=== PATIENT | female | born 1980 | race Caucasian/White ===

== ENCOUNTER 2018-05-07 07:59 | Emergency (ER) | payer SELFPAY ==
--- NOTE | 2018-05-07 08:49 | EDPHYS ---
Physician Documentation [facility] Name: Ligia Naylor Age: 37 yrs Sex: Female : 1980 Arrival Date: 05/07/2018 Time: 08:03 Bed 12 Private MD: Out, [facility] ED Physician Mark Sousa HPI: 05/07 16:40 This 37 yrs old Female presents to ER via Ambulatory with complaints of kdr Toothache, Headache. 16:40 The patient presents with broken tooth/teeth, pain. The problem is located in the left kdr buccal mucosa and right buccal mucosa. Onset: The symptoms/episode began/occurred at an unknown time. This is a chronic issue. Duration: The symptoms are chronic, and have existed for years. Modifying factors: The symptoms are alleviated by nothing, the symptoms are aggravated by chewing, food. Associated signs and symptoms: Pertinent positives: pain, Headache, Pertinent negatives: anorexia, chills, dysphagia, fever, inability to eat, pain. Severity of symptoms: At their worst the symptoms were mild, moderate, in the emergency department the symptoms are unchanged. The patient has experienced similar episodes in the past, chronically. The patient has not recently seen a physician. 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 - Social history:: Smoking status: Patient uses tobacco products, denies chronic smoking, but will smoke occasionally. - Ebola Screening: : Patient negative for fever greater than or equal to 101.5 degrees Fahrenheit, and additional compatible Ebola Virus Disease symptoms Patient denies exposure to infectious person Patient denies travel to an Ebola-affected area in the 21 days before illness onset No symptoms or risks identified at this time. ROS: 16:40 Constitutional: Negative for fever, chills, and weight loss, Eyes: Negative for injury, kdr pain, redness, and discharge, Neck: Negative for injury, pain, and swelling, Cardiovascular: Negative for chest pain, palpitations, and edema, Respiratory: Negative for shortness of breath, cough, wheezing, and pleuritic chest pain, Abdomen/GI: Negative for abdominal pain, nausea, vomiting, diarrhea, and constipation, Back: Negative for injury and pain, : Negative for injury, bleeding, discharge, and swelling, MS/Extremity: Negative for injury and deformity, Skin: Negative for injury, rash, and discoloration, Neuro: Negative for headache, weakness, numbness, tingling, and seizure activity. 16:40 ENT: Positive for dental pain, Negative for drainage from ear(s), ear pain, foreign body sensation, hearing loss, pulling at ears, tinnitus, nasal discharge, rhinorrhea, sinus congestion. Exam: 16:40 Constitutional: This is a well developed, well nourished patient who is awake, alert, kdr and in no acute distress. Head/Face: Normocephalic, atraumatic. Eyes: Pupils equal round and reactive to light, extra-ocular motions intact. Lids and lashes normal. Conjunctiva and sclera are non-icteric and not injected. Cornea within normal limits. Periorbital areas with no swelling, redness, or edema. Neck: Trachea midline, no thyromegaly or masses palpated, and no cervical lymphadenopathy. Supple, full range of motion without nuchal rigidity, or vertebral point tenderness. No Meningismus. 16:40 ENT: Dental exam: avulsion, dental caries, that is moderate, diffusely, fractured teeth are noted, diffusely, missing teeth, diffusely, pain, that is mild, diffusely. Vital Signs: 08:28 BP 113 / 59; Pulse 64; Resp 16; Temp 98.6(TE); Pulse Ox 100% on R/A; Weight 77.11 kg; iw Height 5 ft. 6 in. (167.64 cm); Pain 10/10; 08:28 Body Mass Index 27.44 (77.11 kg, 167.64 cm) iw MDM: 08:49 Patient medically screened. kdr 16:40 Data reviewed: vital signs, nurses notes. Counseling: I had a detailed discussion with kdr the patient and/or guardian regarding: the historical points, exam findings, and any diagnostic results supporting the discharge/admit diagnosis, the need for outpatient follow up. Administered Medications: 08:55 Drug: Amoxicillin 500 mg Route: PO; iw 08:55 Drug: traMADol 50 mg Route: PO; iw Disposition: 05/07/18 08:49 Discharged to Home. Impression: Dental caries. - Condition is Fair. - Discharge Instructions: Dental Pain, [id number], Preventive Dental Care, Adult. - Prescriptions for Amoxicillin 500 mg Oral Capsule - take 1 capsule by ORAL route every 8 hours for 10 days; 30 tablet. Flagyl 500 mg Oral Tablet - take 1 tablet by ORAL route every 6 hours for 10 days; 40 tablet. Tramadol 50 mg Oral Tablet - take 1 tablet by ORAL route every 8 hours as needed; 12 tablet. - Medication Reconciliation Form, Thank You Letter, Antibiotic Education form. - Follow up: Private Physician; When: 2 - 3 days; Reason: If symptoms return, Further diagnostic work-up, Recheck today's complaints, Continuance of care, Re-evaluation by your physician. - Problem is new. - Symptoms are unchanged. Signatures: Mark Sousa MD MD kdr Jackie Hightower RN RN iw Corrections: (The following items were deleted from the chart) 09:19 08:49 05/07/2018 08:49 Discharged to Home. Impression: Dental caries. Condition is iw Fair. Forms are Medication Reconciliation Form, Thank You Letter, Antibiotic Education, Prescription Opioid Use. Follow up: Private Physician; When: 2 - 3 days; Reason: If symptoms return, Further diagnostic work-up, Recheck today's complaints, Continuance of care, Re-evaluation by your physician. Problem is new. Symptoms are unchanged. kdr
--- NOTE | 2018-05-07 08:49 | ER ---
Nurse's Notes [facility] Name: Ligia Naylor Age: 37 yrs Sex: Female : 1980 Arrival Date: 05/07/2018 Time: 08:03 Bed 12 Private MD: Out, [facility] Diagnosis: Dental caries Presentation: 05/07 08:27 Presenting complaint: Patient states: has had toothache X 5 days, c/o pain to upper and iw lower jaw, not sleeping well. Transition of care: patient was not received from another setting of care. Onset of symptoms was May 02, 2018. Risk Assessment: Do you want to hurt yourself or someone else? Patient reports no desire to harm self or others. Initial Sepsis Screen: Does the patient meet any 2 criteria? No. Patient's initial sepsis screen is negative. Does the patient have a suspected source of infection? No. Patient's initial sepsis screen is negative. Care prior to arrival: None. 08:27 Method Of Arrival: Ambulatory iw 08:27 Acuity: HILARIA 4 iw Triage Assessment: 08:45 EENT: Reports pain in mouth and right buccal mucosa and left buccal mucosa. iw 09:18 General: Appears in no apparent distress. Behavior is calm, cooperative. iw 10:31 EENT: Reports. 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 - Social history:: Smoking status: Patient uses tobacco products, denies chronic smoking, but will smoke occasionally. - Ebola Screening: : Patient negative for fever greater than or equal to 101.5 degrees Fahrenheit, and additional compatible Ebola Virus Disease symptoms Patient denies exposure to infectious person Patient denies travel to an Ebola-affected area in the 21 days before illness onset No symptoms or risks identified at this time. Screenin:45 Abuse screen: Denies threats or abuse. Denies injuries from another. Nutritional iw screening: No deficits noted. Tuberculosis screening: No symptoms or risk factors identified. Fall Risk None identified. Assessment: 08:45 General: Appears in no apparent distress. comfortable, Behavior is calm, cooperative. iw Pain: Complains of pain in teeth Pain currently is 8 out of 10 on a pain scale. Neuro: Level of Consciousness is awake, alert, obeys commands, Oriented to person, place, time, situation, Moves all extremities. Full function. Cardiovascular: Patient's skin is warm and dry. Respiratory: Respiratory effort is even, unlabored. EENT: Poor dentition noted. Derm: Skin is intact, is healthy with good turgor. Musculoskeletal: Range of motion: intact in all extremities. Vital Signs: 08:28 BP 113 / 59; Pulse 64; Resp 16; Temp 98.6(TE); Pulse Ox 100% on R/A; Weight 77.11 kg; iw Height 5 ft. 6 in. (167.64 cm); Pain 10/10; 08:28 Body Mass Index 27.44 (77.11 kg, 167.64 cm) iw ED Course: 08:03 Patient arrived in ED. sb2 08:03 Out, [facility] is Private Physician. sb2 08:14 Mark Sousa MD is Attending Physician. kdr 08:27 Jackie Hightower, RN is Primary Nurse. iw 08:28 Triage completed. iw 08:28 Arm band placed on. iw 08:45 Patient has correct armband on for positive identification. iw 09:18 No provider procedures requiring assistance completed. Patient did not have IV access iw during this emergency room visit. Administered Medications: 08:55 Drug: Amoxicillin 500 mg Route: PO; iw 08:55 Drug: traMADol 50 mg Route: PO; iw Outcome: 08:49 Discharge ordered by . kdr 09:18 Discharged to home ambulatory. iw 09:18 Condition: good 09:18 Discharge instructions given to patient, Instructed on discharge instructions, follow up and referral plans. medication usage, Demonstrated understanding of instructions, follow-up care, medications, Prescriptions given X 2. 09:19 Patient left the ED. iw Signatures: Mark Sousa MD MD kdr Jackie Hightower, RN RN iw Dolly Salazar sb2 Corrections: (The following items were deleted from the chart) 08:37 08:28 BP 113 / 59; Pulse 64bpm; Resp 16bpm; Pulse Ox 100% RA; 77.11 kg; Height 5 ft. 6 iw in.; BMI: 27.4; Pain 10/10; iw
[2018-05-07] MEDS ORDERED: AMOXICILLIN TRIHYDR 250 MG CAP ONE (08:54)
[2018-05-07] MEDS ORDERED: TRAMADOL HCL 50 MG TAB ONE (08:55)
== END 2018-05-07 09:19 | disposition home or self-care (01) ==
LOC: ER 07:59
DX: K02.9 Dental caries, unspecified (principal); Z72.0 Tobacco use; Z88.8 Allergy status to other drugs, medicaments and biological substances
CPT/HCPCS: 99283

== ENCOUNTER 2018-05-09 14:44 | Emergency (ER) | payer SELFPAY ==
--- NOTE | 2018-05-09 15:53 | ER ---
Nurse's Notes [facility] Name: Ligia Naylor Age: 37 yrs Sex: Female : 1980 Arrival Date: 05/09/2018 Time: 14:45 Bed 25 Private MD: Out, [facility] Diagnosis: Presentation: 05/09 15:06 Presenting complaint: Patient states: She was seen here 2 days ago for a toothache She aj1 was discharged home with a Rx for amoxicillin, Flagyl and Tramadol. Patient states that the pain and swelling in her right jaw are getting worse. Transition of care: patient was not received from another setting of care. Onset of symptoms was May 07, 2018. Risk Assessment: Do you want to hurt yourself or someone else? Patient reports no desire to harm self or others. Initial Sepsis Screen: Does the patient meet any 2 criteria? No. Patient's initial sepsis screen is negative. Does the patient have a suspected source of infection? Yes: Other: infected tooth. Care prior to arrival: None. 15:06 Method Of Arrival: Wheelchair aj 15:06 Acuity: HILARIA 3 aj1 Triage Assessment: 15:10 General: Appears in no apparent distress. uncomfortable, Behavior is calm, cooperative, aj1 appropriate for age. Pain: Complains of pain in right jaw Pain currently is 2 out of 10 on a pain scale. EENT: Reports pain in right jaw. Neuro: Level of Consciousness is awake, alert, obeys commands, Reports dizziness. Cardiovascular: Patient's skin is warm and dry. Respiratory: Airway is patent Respiratory effort is even, unlabored, Respiratory pattern is regular, symmetrical. 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 - Social history:: Smoking status: Patient uses tobacco products, smokes one-half pack cigarettes per day. - Ebola Screening: : Patient denies travel to an Ebola-affected area in the 21 days before illness onset. Vital Signs: 15:10 BP 109 / 73; Pulse 89; Resp 18; Temp 97.5; Pulse Ox 100% on R/A; Weight 77.11 kg (R); aj1 Height 5 ft. 6 in. (167.64 cm) (R); 15:10 Body Mass Index 27.44 (77.11 kg, 167.64 cm) aj ED Course: 14:45 Patient arrived in ED. sb2 14:45 Out, [facility] is Private Physician. sb2 15:08 Triage completed. aj 15:10 Arm band placed on Patient placed in waiting room. [facility] randallia 15:48 Rj Shook PA is PHCP. melina 15:48 Romain Gabriel MD is Attending Physician. [facility] Administered Medications: No medications were administered Outcome: 15:52 Patient left the ED. la1 Signatures: Carol Kendall RN RN baldo1 Rj Shook PA PA jmm Attema, Lee, RN RN la1 Dolly Salazar sb2 Corrections: (The following items were deleted from the chart) 15:13 15:10 Arm band placed on Patient placed in an exam room, [place] [id number] 15:14 15:06 Presenting complaint: Patient states: She was seen here 2 days ago for a aj1 toothache She was discharged home with a Rx for amoxicillin, Flagyl and Tramadol. Patient states that the pain and swelling in her right jaw are getting worse. aj1
== END 2018-05-09 15:52 | disposition left against medical advice (07) ==
LOC: ER 14:44
DX: K08.89 Other specified disorders of teeth and supporting structures (principal); F20.9 Schizophrenia, unspecified; F17.210 Nicotine dependence, cigarettes, uncomplicated; Z88.8 Allergy status to other drugs, medicaments and biological substances
CPT/HCPCS: 99281

== ENCOUNTER 2018-06-27 11:36 | Emergency (ER) | payer BC, SELFPAY ==
--- NOTE | 2018-06-27 13:31 | ER ---
Nurse's Notes [facility] Name: Ligia Naylor Age: 37 yrs Sex: Female : 1980 Arrival Date: 06/27/2018 Time: 11:43 Bed 23 Private MD: Out, [facility] Diagnosis: Hallucinations, unspecified Presentation: 06/27 12:05 Presenting complaint: Patient states: "I need medication for my schizophrenia, sv hypogenic, hyperactive. I was on [place] 14 years ago but stopped taking it because I was .". Transition of care: patient was not received from another setting of care. Onset of symptoms is unknown. Care prior to arrival: None. 12:05 Method Of Arrival: Ambulatory sv 12:05 Acuity: HILARIA 5 sv Triage Assessment: 12:05 General: Appears in no apparent distress. comfortable, Behavior is calm, cooperative, sv appropriate for age. Pain: Denies pain. Neuro: Level of Consciousness is awake, alert, obeys commands, Oriented to person, place, time, situation, Moves all extremities. Full function Gait is steady. Respiratory: Respiratory effort is even, unlabored, Respiratory pattern is regular, symmetrical. Derm: Skin is normal. Historical: - Allergies: 12:07 Zoloft; sv - PMHx: 12:07 Schizophrenia; Psychogenic; sv - PSHx: 12:07 ; sv - Immunization history:: Flu vaccine is not up to date. - Social history:: Smoking status: Patient uses tobacco products, smokes one pack cigarettes per day. - Ebola Screening: : No symptoms or risks identified at this time. Screenin:08 Abuse screen: Denies threats or abuse. Nutritional screening: No deficits noted. tl3 Tuberculosis screening: No symptoms or risk factors identified. Fall Risk None identified. Assessment: 13:08 General: Appears in no apparent distress. comfortable, well groomed, well developed, tl3 well nourished, Behavior is calm, cooperative, appropriate for age. Pain: Denies pain. Neuro: Level of Consciousness is awake, alert, obeys commands, Oriented to person, place, time, situation, Appropriate for age. Neuro: Reports that she has been off of her medications and has had an increase in nervousness and "talking out of her head". Cardiovascular: Patient's skin is warm and dry. Respiratory: Airway is patent Respiratory effort is even, unlabored, Respiratory pattern is regular, symmetrical. GI: No deficits noted. No signs and/or symptoms were reported involving the gastrointestinal system. : No deficits noted. No signs and/or symptoms were reported regarding the genitourinary system. EENT: No deficits noted. No signs and/or symptoms were reported regarding the EENT system. Derm: No deficits noted. No signs and/or symptoms reported regarding the dermatologic system. Musculoskeletal: No deficits noted. No signs and/or symptoms reported regarding the musculoskeletal system. Vital Signs: 12:07 BP 141 / 77; Pulse 79; Resp 18; Temp 97.3; Pulse Ox 100% ; Weight 68.04 kg; Height 5 sv ft. 6 in. (167.64 cm); Pain 0/10; 13:08 BP 125 / 74; Pulse 69; Resp 18; Pulse Ox 100% on R/A; tl3 13:55 BP 121 / 64; Pulse 60; Resp 16 S; Pulse Ox 99% on R/A; aa5 12:07 Body Mass Index 24.21 (68.04 kg, 167.64 cm) sv ED Course: 11:43 Patient arrived in ED. mr 11:43 Out, [facility] is Private Physician. mr 12:06 Triage completed. sv 12:08 Arm band placed on. 12:48 [facility] 12:48 Antwan Ponce MD is Attending Physician. [facility] 13:01 Chelle Dumont, MARINE is Primary Nurse. tl3 13:08 Patient has correct armband on for positive identification. Call light in reach. Pulse tl3 ox on. NIBP on. 13:08 No provider procedures requiring assistance completed. Patient did not have IV access tl3 during this emergency room visit. Administered Medications: No medications were administered Outcome: 13:30 Discharge ordered by . [facility] 13:59 Discharged to home ambulatory. aa5 13:59 Condition: stable 13:59 Discharge instructions given to patient, Instructed on discharge instructions, follow up and referral plans. Demonstrated understanding of instructions, follow-up care. 14:00 Patient left the ED. aa5 Signatures: Dian Ayala RN RN Rj Shook PA PA [facility] Milena Yuan mr SyMarry RN RN aa5 Aspers, Chelle, RN RN tl3
--- NOTE | 2018-06-27 13:31 | EDPHYS ---
Physician Documentation [facility] Name: Ligia Naylor Age: 37 yrs Sex: Female : 1980 Arrival Date: 06/27/2018 Time: 11:43 Bed 23 Private MD: Out, [facility] ED Physician Antwan Ponce HPI: 06/27 13:28 This 37 yrs old Female presents to ER via Ambulatory with complaints of jmm Medication Refill. 13:28 The patient presents to the emergency department requesting refill(s) for:. This is a jmm 37 year old female with a history of schizophrenia that presents to the ED with a request to begin treatment for schizophrenia after a 14 year hiatus. Patient states she is hearing voices and feels like she is becoming hyperactive. Patient denies SI or HI. Patient states she is scheduled to see a psychiatrist on this coming Thursday. . Historical: - Allergies: 12:07 Zoloft; sv - PMHx: 12:07 Schizophrenia; Psychogenic; sv - PSHx: 12:07 ; sv - Immunization history:: Flu vaccine is not up to date. - Social history:: Smoking status: Patient uses tobacco products, smokes one pack cigarettes per day. - Ebola Screening: : No symptoms or risks identified at this time. ROS: 13:28 Constitutional: Negative for fever, chills, and weight loss, Cardiovascular: Negative jmm for chest pain, palpitations, and edema, Respiratory: Negative for shortness of breath, cough, wheezing, and pleuritic chest pain, Abdomen/GI: Negative for abdominal pain, nausea, vomiting, diarrhea, and constipation. 13:28 Psych: Positive for auditory hallucinations, Negative for homicidal ideation, suicidal ideation. 13:28 All other systems are negative. Exam: 13:28 Constitutional: This is a well developed, well nourished patient who is awake, alert, jmm and in no acute distress. Head/Face: atraumatic. Eyes: EOMI, no conjunctival erythema appreciated ENT: Moist Mucus Membranes Neck: Trachea midline, Supple Chest/axilla: Normal chest wall appearance and motion. Cardiovascular: Regular rate and rhythm. No edema appreciated Respiratory: Normal respirations, no respiratory distress appreciated Abdomen/GI: Non distended, soft Back: Normal ROM Skin: General appearance color normal MS/ Extremity: Moves all extremities, no obvious deformities appreciated, no edema noted to the lower extremities Neuro: Awake and alert, normal gait Psych: Behavior is normal, Mood is normal, Patient is cooperative and pleasant Vital Signs: 12:07 BP 141 / 77; Pulse 79; Resp 18; Temp 97.3; Pulse Ox 100% ; Weight 68.04 kg; Height 5 sv ft. 6 in. (167.64 cm); Pain 0/10; 13:08 BP 125 / 74; Pulse 69; Resp 18; Pulse Ox 100% on R/A; tl3 13:55 BP 121 / 64; Pulse 60; Resp 16 S; Pulse Ox 99% on R/A; aa5 12:07 Body Mass Index 24.21 (68.04 kg, 167.64 cm) sv MDM: 13:28 Patient medically screened. [facility] 13:29 Data reviewed: vital signs, nurses notes. Counseling: I had a detailed discussion with ian the patient and/or guardian regarding: the historical points, exam findings, and any diagnostic results supporting the discharge/admit diagnosis, the need for outpatient follow up, to return to the emergency department if symptoms worsen or persist or if there are any questions or concerns that arise at home. 13:29 Data interpreted: Pulse oximetry: on room air is 99 %. Interpretation: normal. [facility] 13:29 ED course: Patient is calm and in NAD in the ED with no complaints of SI or HI. Patient ian is advised of the need to follow p with Psychiatry this Thursday and otherwise given return precautions for worsening symptoms. Patient understood and agrees with the plan of care. . Administered Medications: No medications were administered Disposition: 06/27/18 13:30 Discharged to Home. Impression: Hallucinations, unspecified. - Condition is Stable. - Discharge Instructions: Schizophrenia. - Medication Reconciliation Form, Thank You Letter, Antibiotic Education, Prescription Opioid Use form. - Follow up: Private Physician; When: 2 - 3 days; Reason: Recheck today's complaints, Continuance of care, Re-evaluation by your physician. Addendum: 06/28/2018 15:19 Co-signature as Attending Physician, Antwan Ponce MD. g s Signatures: Dian Ayala RN RN sv Mickail, Joel, PA PA jmm Calderon, Audri, RN RN [facility] Antwan Ponce MD MD Corrections: (The following items were deleted from the chart) 06/27 14:00 13:30 06/27/2018 13:30 Discharged to Home. Impression: Hallucinations, unspecified. aa5 Condition is Stable. Forms are Medication Reconciliation Form, Thank You Letter, Antibiotic Education, Prescription Opioid Use. Follow up: Private Physician; When: 2 - 3 days; Reason: Recheck today's complaints, Continuance of care, Re-evaluation by your physician. ian
== END 2018-06-27 14:00 | disposition home or self-care (01) ==
LOC: ER 11:36
DX: R44.0 Auditory hallucinations (principal); F20.9 Schizophrenia, unspecified; F17.210 Nicotine dependence, cigarettes, uncomplicated; Z88.8 Allergy status to other drugs, medicaments and biological substances
CPT/HCPCS: 99283

== ENCOUNTER 2018-08-11 21:42 | Emergency (ER) | payer BC, SELFPAY ==
--- NOTE | 2018-08-11 23:05 | ER ---
Nurse's Notes [facility] Name: Ligia Naylor Age: 37 yrs Sex: Female : 1980 Arrival Date: 08/11/2018 Time: 21:42 Bed 8 Private MD: Diagnosis: Schizophrenia, unspecified Presentation: 08/11 21:59 Presenting complaint: Patient states: "I've been diagnosed schizophrenic since I was 4, aj1 I recently started taking my medicines again, because they said I was making scary monster faces. Plus the voices in my head won't shut the hell up. I recognize the voices and they are the ninja turtles. I just want them to stop" Denies suicidal or homicidal ideation. States her son is at [facility], and they said that they would accept her but she doesn't have a ride to [place]. Transition of care: patient was not received from another setting of care. Onset of symptoms was August 11, 2018. Risk Assessment: Do you want to hurt yourself or someone else? Patient reports no desire to harm self or others. Initial Sepsis Screen: Does the patient meet any 2 criteria? No. Patient's initial sepsis screen is negative. Does the patient have a suspected source of infection? No. Patient's initial sepsis screen is negative. Care prior to arrival: None. 21:59 Method Of Arrival: Ambulatory aj1 21:59 Acuity: HILARIA 3 aj1 Triage Assessment: 22:04 General: Appears in no apparent distress. comfortable, Behavior is calm, cooperative, aj1 appropriate for age. Pain: Denies pain. Neuro: Level of Consciousness is awake, alert, obeys commands. Cardiovascular: Patient's skin is warm and dry. Respiratory: Airway is patent Respiratory effort is even, unlabored, Respiratory pattern is regular, symmetrical. 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 - Social history:: Smoking status: Patient uses tobacco products, 5-6 cigarettes per day. - Ebola Screening: : Patient denies travel to an Ebola-affected area in the 21 days before illness onset. Screenin:17 Abuse screen: Denies threats or abuse. Nutritional screening: No deficits noted. jd3 Tuberculosis screening: No symptoms or risk factors identified. Fall Risk Ambulatory Aid- None/Bed Rest/Nurse Assist (0 pts). Gait- Normal/Bed Rest/Wheelchair (0 pts) Mental Status- Oriented to own ability (0 pts). Total Hirsch Fall Scale indicates No Risk (0-24 pts). Assessment: 22:15 General: Appears in no apparent distress. Behavior is calm, cooperative, appropriate jd3 for age, Denies suicidal and homicidal thoughts. Pain: Denies pain. Neuro: Level of Consciousness is awake, alert, obeys commands, Oriented to person, place, time, situation, Appropriate for age Speech is normal, Reports hearing voices.. Cardiovascular: Capillary refill < 3 seconds Patient's skin is warm and dry. Respiratory: Airway is patent Respiratory effort is even, unlabored, Respiratory pattern is regular, symmetrical, Denies shortness of breath. GI: No signs and/or symptoms were reported involving the gastrointestinal system. : No signs and/or symptoms were reported regarding the genitourinary system. EENT: No signs and/or symptoms were reported regarding the EENT system. Derm: Skin is intact, Skin is dry, Skin is normal, Skin temperature is warm. Musculoskeletal: Circulation, motion, and sensation intact. Range of motion: intact in all extremities. 23:24 Reassessment: Patient appears in no apparent distress at this time. Patient and/or jd3 family updated on plan of care and expected duration. Pain level reassessed. Patient is alert, oriented x 3, equal unlabored respirations, skin warm/dry/pink. Vital Signs: 22:04 BP 123 / 79; Pulse 89; Resp 18; Temp 97.6; Pulse Ox 99% on R/A; Weight 81.65 kg (R); aj1 Height 5 ft. 6 in. (167.64 cm) (R); Pain 0/10; 23:25 Pulse 88; Resp 17 S; Pulse Ox 100% on R/A; Pain 0/10; jd3 22:04 Body Mass Index 29.05 (81.65 kg, 167.64 cm) aj1 ED Course: 21:42 Patient arrived in ED. ds1 22:03 Triage completed. aj1 22:04 Arm band placed on Patient placed in an exam room. aj1 22:15 Isaac Matta, RN is Primary Nurse. jd3 22:16 Patient has correct armband on for positive identification. Bed in low position. Call jd3 light in reach. Side rails up X 1. 22:20 Herrera Viveros NP is PHCP. pm1 22:20 Damir Kovacs MD is Attending Physician. pm1 23:24 No provider procedures requiring assistance completed. Patient did not have IV access rv during this emergency room visit. Administered Medications: No medications were administered Outcome: 23:05 Discharge ordered by MD. pm1 23:26 Discharged to home ambulatory. jd3 23:26 Condition: stable 23:26 Discharge instructions given to patient, Instructed on discharge instructions, follow up and referral plans. Demonstrated understanding of instructions, follow-up care. 23:27 Patient left the ED. jd3 Signatures: Carol Kendall RN RN aj1 Gisela Cutler ds1 Herrera Viveros NP DAIRY MANAGEMENT SPECIALIST pm1 Isaac Matta, MARNIE RN jd3 Salty York RN RN rv Corrections: (The following items were deleted from the chart) 22:17 22:15 General: Appears in no apparent distress. Behavior is calm, cooperative, jd3 appropriate for age, jd3
--- NOTE | 2018-08-11 23:06 | EDPHYS ---
Physician Documentation [facility] Name: Ligia Naylor Age: 37 yrs Sex: Female : 1980 Arrival Date: 08/11/2018 Time: 21:42 Bed 8 Private MD: ED Physician Damir Kovacs HPI: 08/11 23:04 This 37 yrs old Female presents to ER via Ambulatory with complaints of Psych pm1 Problem. 23:04 The patient presents to the emergency department with auditory hallucinations. Onset: pm1 The symptoms/episode began/occurred since the age of 4. Past psychiatric history: Prior diagnosis: schizophrenia. Associated signs and symptoms: Pertinent positives; hallucinations, Pertinent negatives: abdominal pain, chest pain, homicidal ideation, paranoia, shortness of breath, substance abuse, suicide ideation. The patient has experienced similar episodes in the past, chronically. 23:04 Patient with a history of noncompliance with medications. She has started taking her pm1 Depakote and risperidone recently due to hearing voices from teenage mutant ninja turtles and making scary faces at people. Patient denies homicidal or suicidal ideation. 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 - Social history:: Smoking status: Patient uses tobacco products, 5-6 cigarettes per day. - Ebola Screening: : Patient denies travel to an Ebola-affected area in the 21 days before illness onset. ROS: 23:04 Constitutional: Negative for fever, chills, and weight loss, Eyes: Negative for injury, pm1 pain, redness, and discharge, ENT: Negative for injury, pain, and discharge, Neck: Negative for injury, pain, and swelling, Cardiovascular: Negative for chest pain, palpitations, and edema, Respiratory: Negative for shortness of breath, cough, wheezing, and pleuritic chest pain, Abdomen/GI: Negative for abdominal pain, nausea, vomiting, diarrhea, and constipation, Back: Negative for injury and pain, : Negative for injury, bleeding, discharge, and swelling, MS/Extremity: Negative for injury and deformity, Skin: Negative for injury, rash, and discoloration, Neuro: Negative for headache, weakness, numbness, tingling, and seizure. 23:04 Psych: Positive for auditory hallucinations, Negative for visual hallucinations, homicidal ideation, insomnia, suicide gesture, suicidal ideation. Exam: 23:04 Constitutional: This is a well developed, well nourished patient who is awake, alert, pm1 and in no acute distress. Head/Face: Normocephalic, atraumatic. Eyes: Pupils equal round and reactive to light, extra-ocular motions intact. Lids and lashes normal. Conjunctiva and sclera are non-icteric and not injected. Cornea within normal limits. Periorbital areas with no swelling, redness, or edema. ENT: Nares patent. No nasal discharge, no septal abnormalities noted. Tympanic membranes are normal and external auditory canals are clear. Oropharynx with no redness, swelling, or masses, exudates, or evidence of obstruction, uvula midline. Mucous membranes moist. Neck: Trachea midline, no thyromegaly or masses palpated, and no cervical lymphadenopathy. Supple, full range of motion without nuchal rigidity, or vertebral point tenderness. No Meningismus. Chest/axilla: Normal chest wall appearance and motion. Nontender with no deformity. No lesions are appreciated. Cardiovascular: Regular rate and rhythm with a normal S1 and S2. No gallops, murmurs, or rubs. Normal PMI, no JVD. No pulse deficits. Respiratory: Lungs have equal breath sounds bilaterally, clear to auscultation and percussion. No rales, rhonchi or wheezes noted. No increased work of breathing, no retractions or nasal flaring. Abdomen/GI: Soft, non-tender, with normal bowel sounds. No distension or tympany. No guarding or rebound. No evidence of tenderness throughout. Back: No spinal tenderness. No costovertebral tenderness. Full range of motion. Skin: Warm, dry with normal turgor. Normal color with no rashes, no lesions, and no evidence of cellulitis. MS/ Extremity: Pulses equal, no cyanosis. Neurovascular intact. Full, normal range of motion. 23:04 Neuro: Orientation: is normal, Motor: moves all fours, Gait: is steady, at a normal pace, without difficulty. 23:04 Psych: Behavior/mood is cooperative, Affect is calm, Oriented to person, place, time, Patient has no thoughts/intents to harm self or others. Delusions/hallucinations are not present. Vital Signs: 22:04 BP 123 / 79; Pulse 89; Resp 18; Temp 97.6; Pulse Ox 99% on R/A; Weight 81.65 kg (R); aj1 Height 5 ft. 6 in. (167.64 cm) (R); Pain 0/10; 23:25 Pulse 88; Resp 17 S; Pulse Ox 100% on R/A; Pain 0/10; jd3 22:04 Body Mass Index 29.05 (81.65 kg, 167.64 cm) aj1 MDM: 22:20 Patient medically screened. pm1 23:04 Data reviewed: vital signs. Data interpreted: Pulse oximetry: on room air is 99 %. pm1 Interpretation: normal. Counseling: I had a detailed discussion with the patient and/or guardian regarding: the historical points, exam findings, and any diagnostic results supporting the discharge/admit diagnosis, the need for outpatient follow up, to return to the emergency department if symptoms worsen or persist or if there are any questions or concerns that arise at home. Administered Medications: No medications were administered Disposition: 08/12 06:06 Co-signature as Attending Physician, Damir Kovacs MD I agree with the assessment and tw4 plan of care. Disposition: 08/11/18 23:05 Discharged to Home. Impression: Schizophrenia, unspecified. - Condition is Stable. - Discharge Instructions: Schizophrenia. - Medication Reconciliation Form, Thank You Letter form. - Follow up: Emergency Department; When: As needed; Reason: Worsening of condition. Follow up: Private Physician; When: 2 - 3 days; Reason: Recheck today's complaints, Continuance of care, Re-evaluation by your physician. - Problem is new. - Symptoms have improved. Signatures: Carol Kendall RN RN aj1 Herrera Viveros NP ELECTROMYOGRAPHIC TECHNICIAN pm1 Isaac Matta RN RN jd3 Damir Kovacs MD MD tw4 Corrections: (The following items were deleted from the chart) 08/11 23:27 23:05 08/11/2018 23:05 Discharged to Home. Impression: Schizophrenia, unspecified. jd3 Condition is Stable. Forms are Medication Reconciliation Form, Thank You Letter, Antibiotic Education, Prescription Opioid Use. Follow up: Emergency Department; When: As needed; Reason: Worsening of condition. Follow up: Private Physician; When: 2 - 3 days; Reason: Recheck today's complaints, Continuance of care, Re-evaluation by your physician. Problem is new. Symptoms have improved. pm1
== END 2018-08-11 23:27 | disposition home or self-care (01) ==
LOC: ER 21:42
DX: F20.9 Schizophrenia, unspecified (principal); F17.210 Nicotine dependence, cigarettes, uncomplicated; Z88.8 Allergy status to other drugs, medicaments and biological substances
CPT/HCPCS: 99281

== ENCOUNTER 2018-11-02 08:46 | Emergency (ER) | payer SELFPAY ==
[2018-11-02 10:36] LABS: Absolute Lymphocytes (CBC) 1.4 K/uL (0.7-4.9); Absolute Monocytes 0.9 K/uL (0.1-1.3); Absolute Neutrophil 4.7 K/uL (1.8-8.0); Basophils % 0.4 % (0-1.3); Hematocrit 42.6 % (36.0-45.0); Lymphocytes % 19.7 % (15.3-44.8); MPV 8.5 fL (7.6-11.3); Monocytes % 12.6 % (3.3-12.3); RBC Red Blood Cell Count 4.92 M/uL (3.86-4.86)
[2018-11-02] MEDS ORDERED: NA CHLORIDE 0.9% 1,000 ML ONE (10:43)
[2018-11-02] MEDS ORDERED: ONDANSETRON 4 MG/2 ML VIAL ONE (10:43)
[2018-11-02 10:47] LABS: Potassium 3.9 mmol/L (3.5-5.1)
[2018-11-02 10:58] LABS: Urine Blood 1+ (NEG); Urine Glucose NEGATIVE (NEG); Urine Protein NEGATIVE (NEG); Urine Specific Gravity 1.025 (1.005-1.030)
--- NOTE | 2018-11-02 11:25 | ER ---
Nurse's Notes [facility] Name: Ligia Naylor Age: 38 yrs Sex: Female : 1980 Arrival Date: 11/02/2018 Time: 08:48 Bed 6 Private MD: Diagnosis: Nausea Presentation: 11/02 08:51 Presenting complaint: Patient states: nausea x5 days, no vomiting, I think I am anemic, ch and I have had diarrhe every other day. Transition of care: patient was not received from another setting of care. Onset of symptoms was October 28, 2018. Risk Assessment: Do you want to hurt yourself or someone else? Patient reports no desire to harm self or others. Initial Sepsis Screen: Does the patient meet any 2 criteria? No. Patient's initial sepsis screen is negative. Does the patient have a suspected source of infection? No. Patient's initial sepsis screen is negative. Care prior to arrival: None. 08:51 Method Of Arrival: Ambulatory 08:51 Acuity: HILARIA 4 ch Triage Assessment: 08:52 General: Appears in no apparent distress. comfortable, Behavior is calm, cooperative, ch appropriate for age. Pain: Denies pain. GI: Reports diarrhea, intolerance of food, nausea. Historical: - Allergies: 08:52 [place] Carbonate; 08:52 Zoloft; - Home Meds: 08:52 Depakote Oral [Active]; risperidone Oral [Active]; ch - PMHx: 08:52 Psychogenic; Schizophrenia; - PSHx: 08:52 None; ch - Immunization history:: Adult Immunizations up to date, Flu vaccine is not up to date. - Social history:: Smoking status: Patient uses tobacco products, denies chronic smoking, but will smoke occasionally. - Ebola Screening: : Patient negative for fever greater than or equal to 101.5 degrees Fahrenheit, and additional compatible Ebola Virus Disease symptoms Patient denies exposure to infectious person Patient denies travel to an Ebola-affected area in the 21 days before illness onset No symptoms or risks identified at this time. Screenin:27 Abuse screen: Denies threats or abuse. Denies injuries from another. Nutritional sg screening: No deficits noted. Tuberculosis screening: No symptoms or risk factors identified. Fall Risk None identified. Assessment: 09:27 Reassessment: pt reports dizziness and unable to remain standing for [employer], sg Ximena CHEMICAL SPRAYER notified. 10:30 Reassessment: Patient appears in no apparent distress at this time. Patient and/or ph family updated on plan of care and expected duration. Pain level reassessed. Patient is alert, oriented x 3, equal unlabored respirations, skin warm/dry/pink. Pt resting quietly, denies pain or nausea at this time, awaiting lab results. 11:10 Reassessment: Patient appears in no apparent distress at this time. Patient and/or ph family updated on plan of care and expected duration. Pain level reassessed. Patient is alert, oriented x 3, equal unlabored respirations, skin warm/dry/pink. Pt given juice and water for PO challenge, tolerating well, denies nausea. Vital Signs: 08:52 BP 103 / 72; Pulse 85; Resp 16; Temp 97.8; Pulse Ox 99% on R/A; Weight 85.28 kg; Height ch 5 ft. 5 in. (165.10 cm); Pain 0/10; 09:20 BP 101 / 62 LA Supine (auto/lg); Pulse 63; em1 09:22 BP 98 / 64 LA Sitting (auto/lg); Pulse 66; em1 08:52 Body Mass Index 31.28 (85.28 kg, 165.10 cm) ED Course: 08:48 Patient arrived in ED. as 08:51 Triage completed. 08:52 Arm band placed on left wrist. Patient placed in an exam room, on a stretcher. 08:54 Jenniffer Cline FNP-C is [facility]. 08:54 Romain Gabriel MD is Attending Physician. kb 09:24 Gus Smith, MARNIE is Primary Nurse. sg 09:30 Patient has correct armband on for positive identification. Placed in gown. Bed in low ph position. Call light in reach. rn rehab on. Pulse ox on. NIBP on. 10:24 Initial lab(s) drawn, by me, sent to lab. Inserted saline lock: 20 gauge in left em1 antecubital area, using aseptic technique. Blood collected. 11:43 No provider procedures requiring assistance completed. IV discontinued, intact, ph bleeding controlled, No redness/swelling at site. Pressure dressing applied. Administered Medications: 09:33 CANCELLED (Other Intervention Used): Zofran 4 mg PO once kb 10:40 Drug: NS 0.9% 1000 ml Route: IV; Rate: 1000 ml; Site: left antecubital; ph 11:45 Follow up: Response: No adverse reaction; IV Status: Completed infusion ph 11:42 Not Given (Patient Refused; Denies nausea): Zofran 4 mg IVP once; over 2 minutes ph Outcome: 11:24 Discharge ordered by MD. kb 11:44 Discharged to home ambulatory, with significant other. ph 11:44 Condition: good 11:44 Discharge instructions given to patient, significant other, Instructed on discharge instructions, follow up and referral plans. medication usage, Demonstrated understanding of instructions, follow-up care, medications, Prescriptions given X 1. 11:45 Patient left the ED. ph Signatures: Jenniffer Cline, MARIA EUGENIA CARCAMO-Allyson Victor, RN RN Gus Smith RN RN sg Anam, Beverly Mendieta, Km em1 Melissa Katz RN RN ph Corrections: (The following items were deleted from the chart) 09:29 09:27 Reassessment: pt reports dizziness and unable to remain standing for [employer], jeny Bueno CHEMICAL SPRAYER notified sg
--- NOTE | 2018-11-02 11:25 | EDPHYS ---
Physician Documentation [facility] Name: Ligia Naylor Age: 38 yrs Sex: Female : 1980 Arrival Date: 11/02/2018 Time: 08:48 Bed 6 Private MD: ED Physician Romain Gabriel HPI: 11/02 09:06 This 38 yrs old Female presents to ER via Ambulatory with complaints of kb Nausea. 09:06 The patient presents to the emergency department with nausea. Onset: The kb symptoms/episode began/occurred 5 day(s) ago. Possible causes: unknown. The symptoms are aggravated by nothing. The symptoms are alleviated by food . Associated signs and symptoms: Pertinent positives: nausea, Pertinent negatives: abdominal pain, anorexia, belching, constipation, diarrhea, dysuria, fever, flatulence, GI bleeding, hematuria, vaginal discharge, vomiting. Severity of symptoms: At their worst the symptoms were moderate in the emergency department the symptoms are unchanged. The patient has not experienced similar symptoms in the past. The patient has not recently seen a physician. Pt reports nausea for 5 days. States she is only able to eat about 5 bites of food at a time. States "I may be anemic because I haven't been able to eat much.". Historical: - Allergies: 08:52 Norge Carbonate; ch 08:52 Zoloft; ch - Home Meds: 08:52 Depakote Oral [Active]; risperidone Oral [Active]; ch - PMHx: 08:52 Psychogenic; Schizophrenia; ch - PSHx: 08:52 None; ch - Immunization history:: Adult Immunizations up to date, Flu vaccine is not up to date. - Social history:: Smoking status: Patient uses tobacco products, denies chronic smoking, but will smoke occasionally. - Ebola Screening: : Patient negative for fever greater than or equal to 101.5 degrees Fahrenheit, and additional compatible Ebola Virus Disease symptoms Patient denies exposure to infectious person Patient denies travel to an Ebola-affected area in the 21 days before illness onset No symptoms or risks identified at this time. ROS: 09:06 Constitutional: Negative for fever, chills, and weight loss, ENT: Negative for injury, kb pain, and discharge, Neck: Negative for injury, pain, and swelling, Cardiovascular: Negative for chest pain, palpitations, and edema, Respiratory: Negative for shortness of breath, cough, wheezing, and pleuritic chest pain, Back: Negative for injury and pain, MS/Extremity: Negative for injury and deformity, Skin: Negative for injury, rash, and discoloration, Neuro: Negative for headache, weakness, numbness, tingling, and seizure. 09:06 Abdomen/GI: Positive for nausea, Negative for abdominal pain, vomiting, diarrhea, constipation, abdominal cramps, abdominal distension, anorexia. Exam: 09:05 Constitutional: This is a well developed, well nourished patient who is awake, alert, kb and in no acute distress. Head/Face: Normocephalic, atraumatic. Chest/axilla: Normal chest wall appearance and motion. Nontender with no deformity. No lesions are appreciated. Cardiovascular: Regular rate and rhythm with a normal S1 and S2. No gallops, murmurs, or rubs. Normal PMI, no JVD. No pulse deficits. Respiratory: Lungs have equal breath sounds bilaterally, clear to auscultation and percussion. No rales, rhonchi or wheezes noted. No increased work of breathing, no retractions or nasal flaring. Abdomen/GI: Soft, non-tender, with normal bowel sounds. No distension or tympany. No guarding or rebound. No evidence of tenderness throughout. Back: No spinal tenderness. No costovertebral tenderness. Full range of motion. Skin: Warm, dry with normal turgor. Normal color with no rashes, no lesions, and no evidence of cellulitis. MS/ Extremity: Pulses equal, no cyanosis. Neurovascular intact. Full, normal range of motion. Neuro: Awake and alert, GCS 15, oriented to person, place, time, and situation. Cranial nerves II-XII grossly intact. Motor strength 5/5 in all extremities. Sensory grossly intact. Cerebellar exam normal. Normal gait. Vital Signs: 08:52 BP 103 / 72; Pulse 85; Resp 16; Temp 97.8; Pulse Ox 99% on R/A; Weight 85.28 kg; Height ch 5 ft. 5 in. (165.10 cm); Pain 0/10; 09:20 BP 101 / 62 LA Supine (auto/lg); Pulse 63; em1 09:22 BP 98 / 64 LA Sitting (auto/lg); Pulse 66; em1 08:52 Body Mass Index 31.28 (85.28 kg, 165.10 cm) ch MDM: 08:54 Patient medically screened. kb 09:05 Data reviewed: vital signs, nurses notes. Data interpreted: Pulse oximetry: on room air kb is 99 %. Interpretation: normal. 09:33 ED course: Pt reports lightheadedness upon standing when trying to obtain orthostatics. kb Will give IV fluids. 11:24 Counseling: I had a detailed discussion with the patient and/or guardian regarding: the kb historical points, exam findings, and any diagnostic results supporting the discharge/admit diagnosis, lab results, the need for outpatient follow up, a family practitioner, to return to the emergency department if symptoms worsen or persist or if there are any questions or concerns that arise at home. ED course: Tolerating PO intake. 11/02 09:06 Order name: Flu; Complete Time: 10:31 kb 11/02 09:32 Order name: CBC with Diff; Complete Time: 10:38 kb 11/02 09:32 Order name: Basic Metabolic Panel; Complete Time: 10:48 kb 11/02 09:55 Order name: Urine Dipstick--Ancillary (enter results); Complete Time: 11:03 bd 11/02 09:55 Order name: Urine --Ancillary (enter results); Complete Time: 11:03 bd 11/02 09:00 Order name: Urine Dipstick-Ancillary (obtain specimen); Complete Time: 10:26 kb 11/02 09:00 Order name: Orthostatics; Complete Time: 09:30 kb 11/02 09:32 Order name: IV Start; Complete Time: 10:24 kb 11/02 10:48 Order name: PO challenge; Complete Time: 11:26 kb Administered Medications: 09:33 CANCELLED (Other Intervention Used): Zofran 4 mg PO once kb 10:40 Drug: NS 0.9% 1000 ml Route: IV; Rate: 1000 ml; Site: left antecubital; ph 11:45 Follow up: Response: No adverse reaction; IV Status: Completed infusion ph 11:42 Not Given (Patient Refused; Denies nausea): Zofran 4 mg IVP once; over 2 minutes ph Disposition: 18:02 Co-signature as Attending Physician, Romain Gabriel MD. rn Disposition: 11/02/18 11:24 Discharged to Home. Impression: Nausea. - Condition is Stable. - Discharge Instructions: Nausea, Adult. - Prescriptions for Zofran 4 mg Oral Tablet - take 1 tablet by ORAL route every 6 hours As needed; 20 tablet. - Medication Reconciliation Form, Thank You Letter, Antibiotic Education, Prescription Opioid Use form. - Follow up: Emergency Department; When: As needed; Reason: Worsening of condition. Follow up: Private Physician; When: 2 - 3 days; Reason: Recheck today's complaints, Continuance of care, Re-evaluation by your physician. Signatures: Dispatcher [employer] EDMS Jenniffer Cline, CLERICAL GRADER-C CLERICAL GRADER-Ckb Allyson Gomez, RN RN Romain Hopson MD MD rn Hall, Patricia, RN RN ph Corrections: (The following items were deleted from the chart) 09:33 09:00 Zofran 4 mg PO once ordered. kb kb 11:45 11:24 11/02/2018 11:24 Discharged to Home. Impression: Nausea. Condition is Stable. ph Forms are Medication Reconciliation Form, Thank You Letter, Antibiotic Education, Prescription Opioid Use. Follow up: Emergency Department; When: As needed; Reason: Worsening of condition. Follow up: Private Physician; When: 2 - 3 days; Reason: Recheck today's complaints, Continuance of care, Re-evaluation by your physician. kb
== END 2018-11-02 11:45 | disposition home or self-care (01) ==
LOC: ER 08:46
DX: R11.0 Nausea (principal); F20.9 Schizophrenia, unspecified; Z88.8 Allergy status to other drugs, medicaments and biological substances; Z72.0 Tobacco use
CPT/HCPCS: 36415; 80048; 81003; 81025; 85025; 87804; 96360; 99284; J2405; J7030